=== PATIENT | female | born 1960 | race Hispanic/Latino ===

== ENCOUNTER 2016-06-03 07:22 | Outpatient (CLI) | payer OTHER ==
[2016-06-03 08:05] LABS: ALT (SGPT) 19 U/L (0-55); AST (SGOT) 27 U/L (5-34); Alkaline Phosphatase 92 U/L (40-150); Bilirubin, Direct 0.1 mg/dL (0.1-0.3); Bilirubin, Total 0.3 mg/dL (0.2-1.2); Protein, Total 7.1 g/dL (6.0-8.3)
== END 2016-06-03 07:23 | disposition home or self-care (01) ==
LOC: NAV LAB 07:22
PROVIDERS: ATTEND Internal Medicine Gastroenterology
DX: K74.3 Primary biliary cirrhosis (principal)
CPT/HCPCS: 36415; 80076

== ENCOUNTER 2016-09-08 14:36 | Outpatient (CLI) | payer OTHER ==
[2016-09-08 15:05] LABS: #Basophils 0.1 thou/uL (0.0-0.2); #Eosinphils 0.1 thou/uL (0.0-0.7); #Lymphocytes 2.3 thou/uL (1.20-3.40); #Monocytes 0.4 thou/uL (0.11-0.59); %Basophils 2.5 % (0.0-1.0); %Eosinophils 2.2 % (0.0-10.0); %Monocytes 6.9 % (0.0-10.0); %Neutrophils 50.4 % (42.0-75.0); Hemoglobin 12.4 g/dL (12.0-16.0); Mean Corpuscular HGB CONC 32.7 g/dL (32.0-36.0); Mean Corpuscular Hemoglobin 26.6 pg (27.0-31.0); Mean Corpuscular Volume 81.2 fl (81.0-99.0); Mean Platelet Volume 7.5 fL (7.4-10.4); Platelet Count 291 thou/uL (130-400); RBC Distribution Width 13.4 % (11.5-14.5); Red Blood Cell (RBC) Count 4.66 mill/uL (4.20-5.40); White Blood Cell (WBC) Count 5.9 thou/uL (4.8-10.8)
[2016-09-08 15:11] LABS: ALT (SGPT) 20 U/L (0-55); AST (SGOT) 26 U/L (5-34); Albumin 4.2 g/dL (3.5-5.0); Alkaline Phosphatase 77 U/L (40-150); Anion Gap 13 mmol/L (10-20); BUN (Urea Nitrogen) 11 mg/dL (9.8-20.1); Bilirubin, Total 0.5 mg/dL (0.2-1.2); Calc. Creatinine Clearance 0 mL/min (70-130); Calcium 9.3 mg/dL (7.8-10.44); Carbon Dioxide 24 mmol/L (22-29); Chloride 106 mmol/L (98-107); Estimated GFR-MDRD 76; Globulin 3.2 g/dL (2.4-3.5); Glucose 102 mg/dL (70-105); Potassium 4.3 mmol/L (3.5-5.1); Protein, Total 7.4 g/dL (6.0-8.3); Sodium 139 mmol/L (136-145)
== END 2016-09-08 14:37 | disposition home or self-care (01) ==
LOC: NAV LAB 14:36
PROVIDERS: ATTEND Family Medicine
DX: K74.3 Primary biliary cirrhosis (principal)
CPT/HCPCS: 36415; 80053; 85025

== ENCOUNTER 2017-01-14 07:14 | Outpatient (CLI) | payer OTHER ==
[2017-01-14 07:47] LABS: Hemoglobin 10.8 g/dL (12.0-16.0); Mean Corpuscular HGB CONC 31.3 g/dL (32.0-36.0); Mean Corpuscular Volume 82.9 fl (81.0-99.0); Mean Platelet Volume 7.3 fL (7.4-10.4); Platelet Count 279 thou/uL (130-400); RBC Distribution Width 13.2 % (11.5-14.5); Red Blood Cell (RBC) Count 4.15 mill/uL (4.20-5.40); White Blood Cell (WBC) Count 5.7 thou/uL (4.8-10.8)
[2017-01-14 08:03] LABS: ALT (SGPT) 19 U/L (8-55); AST (SGOT) 26 U/L (5-34); Albumin 3.9 g/dL (3.5-5.0); Alkaline Phosphatase 69 U/L (40-150); Anion Gap 14 mmol/L (10-20); BUN (Urea Nitrogen) 12 mg/dL (9.8-20.1); Bilirubin, Total 0.3 mg/dL (0.2-1.2); Calc. Creatinine Clearance 0 mL/min (70-130); Calcium 8.9 mg/dL (7.8-10.44); Carbon Dioxide 25 mmol/L (22-29); Cardiac Risk 2.3 (Less than 4.5); Chloride 109 mmol/L (98-107); Cholesterol 144 mg/dl (< 200 Desired); Estimated GFR-MDRD 70; Globulin 3.3 g/dL (2.4-3.5); Glucose 90 mg/dL (70-105); HDL Cholesterol 63 mg/dL (>60 Neg Risk); LDL Cholesterol, Calculated 60 mg/dL; Potassium 4.6 mmol/L (3.5-5.1); Protein, Total 7.2 g/dL (6.0-8.3); Sodium 143 mmol/L (136-145); Triglycerides 104 mg/dL (Less than 150)
[2017-01-14 09:00] LABS: Thyroid Stimulating Hormone 1.8867 uIU/mL (0.35-4.94); Vitamin D, 25 Hydroxy 45.5 ng/ml (> 30.0)
== END 2017-01-14 07:15 | disposition home or self-care (01) ==
LOC: NAV LAB 07:14
PROVIDERS: ATTEND Internal Medicine Gastroenterology
DX: R10.11 Right upper quadrant pain (principal)
CPT/HCPCS: 36415; 80053; 80061; 82306; 84443; 85027

== ENCOUNTER 2018-01-30 15:55 | Outpatient (CLI) | payer OTHER ==
--- NOTE | 2018-01-30 16:35 | RAD ---
AP ABDOMINAL RADIOGRAPH: 01/30/2018 HISTORY: Right kidney stone. Right flank pain. FINDINGS: Surgical clips overly the right upper quadrant. Renal shadows are partially obscured bilaterally, gr eater on the right, but no definite suspicious calcifications are seen overlying the region of the re nal collecting systems or along the expected course of either ureter. There are calcifications overl capo the pelvis bilaterally, and calcifications were seen on the prior CT exam in 2017, representing phleboliths, which likely account for the findings on the current exam. The bowel gas pattern is non specific. The osseous structures are intact. IMPRESSION: 1. Nonspecific bowel gas pattern. 2. Phleboliths overlying the pelvis, but no definite suspicious calcifications are seen overlying th e region of the renal collecting systems or along the expected course of either ureter. POS: SHIVANI
== END 2018-01-30 15:56 | disposition home or self-care (01) ==
LOC: NAV RAD 15:55
PROVIDERS: ATTEND Family Medicine
DX: N20.0 Calculus of kidney (principal); R10.9 Unspecified abdominal pain; I87.8 Other specified disorders of veins
CPT/HCPCS: 74018

== ENCOUNTER 2019-12-05 12:30 | Emergency (ER) | payer OTHER ==
--- NOTE | 2019-12-05 13:04 | RAD ---
XR Knee Lt 4 View STANDARD HISTORY: Injury, left knee pain FINDINGS: No fracture or dislocation is identified.
== END 2019-12-05 14:05 | disposition home or self-care (01) ==
LOC: NAV ERS 12:30
DX: S80.02XA Contusion of left knee, initial encounter (principal); E78.00 Pure hypercholesterolemia, unspecified; E03.9 Hypothyroidism, unspecified; F41.9 Anxiety disorder, unspecified; M06.9 Rheumatoid arthritis, unspecified; Z79.899 Other long term (current) drug therapy; V86.99XA Unspecified occupant of other special all-terrain or other off-road motor vehicle injured in nontraffic accident, initial encounter

== ENCOUNTER 2020-02-21 07:28 | Outpatient (CLI) | payer OTHER ==
--- NOTE | 2020-02-21 09:16 | RAD ---
TWO VIEWS OF THE CHEST: COMPARISON: 02/26/2016. HISTORY: Preoperative radiograph. FINDINGS: Two views of the chest show normal sized cardiomediastinal silhouette. There is no evidence of consol idation, mass, or pleural effusion. The bones are unremarkable. IMPRESSION: No evidence of acute cardiopulmonary disease. POS: EAA
== END 2020-02-21 07:29 | disposition home or self-care (01) ==
LOC: NAV RAD 07:28
PROVIDERS: ATTEND Family Medicine
DX: Z01.818 Encounter for other preprocedural examination (principal)
CPT/HCPCS: 71046

== ENCOUNTER 2021-10-20 13:54 | Outpatient (CLI) | payer OTHER | END 2021-10-20 13:55 | disposition home or self-care (01) | LOC: NAV RAD 13:54 | PROVIDERS: ATTEND Family Medicine | DX: M54.41 Lumbago with sciatica, right side (principal); M25.551 Pain in right hip; M16.0 Bilateral primary osteoarthritis of hip; M51.16 Intervertebral disc disorders with radiculopathy, lumbar region; M47.816 Spondylosis without myelopathy or radiculopathy, lumbar region; M47.898 Other spondylosis, sacral and sacrococcygeal region; W19.XXXA Unspecified fall, initial encounter | CPT/HCPCS: 72100; 72170; 72220 ==

== ENCOUNTER 2022-02-27 11:46 | Emergency (ER) | payer OTHER | END 2022-02-27 13:24 | disposition home or self-care (01) | LOC: NAV ERS 11:46 | DX: S63.641A Sprain of metacarpophalangeal joint of right thumb, initial encounter (principal); S00.83XA Contusion of other part of head, initial encounter; E03.9 Hypothyroidism, unspecified; E78.00 Pure hypercholesterolemia, unspecified; M06.9 Rheumatoid arthritis, unspecified; I10 Essential (primary) hypertension; E78.5 Hyperlipidemia, unspecified; Z79.899 Other long term (current) drug therapy; W01.0XXA Fall on same level from slipping, tripping and stumbling without subsequent striking against object, initial encounter | CPT/HCPCS: 70450 ==